=== PATIENT | male | born 1980 | race African-American/Black ===

== ENCOUNTER 2019-03-17 20:50 | Inpatient (IN) | payer SELFPAY ==
[~2019-03-17] VITALS: Ht 177.8 cm; Wt 125.3 kg
--- NOTE | 2019-03-17 21:11 | PHYS DOC ---
Adult General Chief Complaint Chief Complaint: SHORTNESS OF BREATH HPI HPI Patient is a 38 year old male presented with shortness of breath and chest tightness feels like a sledgehammer on his chest coughing yellow mucus had a fever today thinks it's his asthma and been going on 2 weeks it's worse now he can barely walk across the room HX OF HTN BUT NOT ON MEDS NO DOCTOR DENIES ETOH, DRUGS SMOKING Review of Systems Review of Systems Constitutional: Denies fever or chills [] Eyes: Denies change in visual acuity, redness, or eye pain [] Musculoskeletal: Denies back pain or joint pain [] Integument: Denies rash or skin lesions [] Neurologic: Denies headache, focal weakness or sensory changes [] Endocrine: Denies polyuria or polydipsia [] All other systems were reviewed and found to be within normal limits, except as documented in this note. POS ORTHOPNEA "I FEEL MY LUNGS FILL UP WHEN I LIE DOWN" Allergies Allergies Allergies Uncoded Allergies Type Severity Reaction Last Updated Verified SEASONAL ALLERGIES Allergy Unknown 03/17/19 Physical Exam Physical Exam Constitutional: Well developed, well nourished, no acute distress, non-toxic appearance. [] HENT: Normocephalic, atraumatic, bilateral external ears normal, oropharynx moist, no oral exudates, nose normal. [] Eyes: PERRLA, EOMI, conjunctiva normal, no discharge. [] Neck: Normal range of motion, no tenderness, supple, no stridor. [] Cardiovascular:Heart rate regular rhythm, no murmur [] Lungs & Thorax: CRACKLES B/L AND LEFT LUNG BASE DECREASED Abdomen: Bowel sounds normal, soft, no tenderness, no masses, no pulsatile masses. [] Skin: Warm, no erythema, no rash. [] MILD DIAPHORESIS Back: No tenderness, no CVA tenderness. [] Extremities: No tenderness, no cyanosis, no clubbing, ROM intact,ONE PLUS Neurologic: Alert and oriented X 3, normal motor function, normal sensory function, no focal deficits noted. [] Psychologic: Affect normal, judgement normal, mood normal. [] Current Patient Data Vital Signs Vital Signs Date Time Temp Pulse Resp B/P (MAP) Pulse Ox O2 Delivery O2 Flow Rate FiO2 03/17/19 20:50 98.4 100 20 187/122 (143) 86 Room Air 98.4 Lab Values Laboratory Tests Test 03/17/19 21:20 White Blood Count 17.1 x10^3/uL (4.0-11.0) H Red Blood Count 4.34 x10^6/uL (4.30-5.70) Hemoglobin 12.9 g/dL (13.0-17.5) L Hematocrit 38.3 % (39.0-53.0) L Mean Corpuscular Volume 88 fL (79-100) Mean Corpuscular Hemoglobin 30 pg (25-35) Mean Corpuscular Hemoglobin Concent 34 g/dL (31-37) Red Cell Distribution Width 14.4 % (11.5-14.5) Platelet Count 200 x10^3/uL (140-400) Neutrophils (%) (Auto) 78 % (31-73) H Lymphocytes (%) (Auto) 14 % (24-48) L Monocytes (%) (Auto) 7 % (0-9) Eosinophils (%) (Auto) 1 % (0-3) Basophils (%) (Auto) 1 % (0-3) Neutrophils # (Auto) 13.3 x10^3/uL (1.8-7.7) H Lymphocytes # (Auto) 2.4 x10^3/uL (1.0-4.8) Monocytes # (Auto) 1.2 x10^3/uL (0.0-1.1) H Eosinophils # (Auto) 0.2 x10^3/uL (0.0-0.7) Basophils # (Auto) 0.1 x10^3/uL (0.0-0.2) Segmented Neutrophils % 77 % (35-66) H Lymphocytes % 16 % (24-48) L Atypical Lymphocytes % (Manual) 1 % (0-0) H Monocytes % 5 % (0-10) Eosinophils % 1 % (0-5) Platelet Estimate Adequate (ADEQUATE) Sodium Level 145 mmol/L (136-145) Potassium Level 3.8 mmol/L (3.5-5.1) Chloride Level 109 mmol/L (98-107) H Carbon Dioxide Level 25 mmol/L (21-32) Anion Gap 11 (6-14) Blood Urea Nitrogen 13 mg/dL (8-26) Creatinine 1.3 mg/dL (0.7-1.3) Estimated GFR (Cockcroft-Gault) 61.5 BUN/Creatinine Ratio 10 (6-20) Glucose Level 128 mg/dL (70-99) H Calcium Level 9.0 mg/dL (8.5-10.1) Total Bilirubin 0.9 mg/dL (0.2-1.0) Aspartate Amino Transferase (AST) 33 U/L (15-37) Alanine Aminotransferase (ALT) 38 U/L (16-63) Alkaline Phosphatase 79 U/L (46-116) Troponin I Quantitative 0.445 ng/mL (0.000-0.055) PN-Imq-P-Type Natriuretic Peptide 4686 pg/mL (0-124) H Total Protein 6.9 g/dL (6.4-8.2) Albumin 3.2 g/dL (3.4-5.0) L Albumin/Globulin Ratio 0.9 (1.0-1.7) L Laboratory Tests 03/17/19 21:20 Laboratory Tests 03/17/19 21:20 EKG EKG []Normal sinus rhythm rate 83 no acute ischemic changes noted interpreted by me time of encounter. Radiology/Procedures Radiology/Procedures [] Impressions: CHF x-ray significant cardiomegaly Course & Med Decision Making Course & Med Decision Making Pertinent Labs and Imaging studies reviewed. (See chart for details) []38-year-old male coming with shortness of breath for 2 weeks no past medical history except for hypertension which is untreated denies social habits ER workup reveals congestive heart failure pressure elevated usual treatment initiated Lasix Nitropaste aspirin due to the leukocytosis I did also order blood cultures lactic acid and some antibiotics but I think CHF is much more likely. Admitted to Dr. centeno Noted the cardiomegaly needs an echocardiogram at this point time blood pressure is quite elevated not clinically TAMPONADE at this moment Dragon Disclaimer Dragon Disclaimer This electronic medical record was generated, in whole or in part, using a voice recognition dictation system. Departure Departure Impression: Primary Impression: Acute exacerbation of congestive heart failure Disposition: ADMITTED INPATIENT Admitting Physician: IZABEL Condition: STABLE LAURA MADDEN MD Mar 17, 2019 21:11
[2019-03-17 21:30] LABS: BASO # 0.1 x10^3/uL (0.0-0.2); BASO % 1 % (0-3); EOS # 0.2 x10^3/uL (0.0-0.7); EOS % 1 % (0-3); HEMATOCRIT 38.3 % (39.0-53.0); HEMOGLOBIN 12.9 g/dL (13.0-17.5); LYMPH # 2.4 x10^3/uL (1.0-4.8); LYMPH % 14 % (24-48); MEAN CORPUSCULAR HEMOGLOBIN 30 pg (25-35); MEAN CORPUSCULAR HGB CONC 34 g/dL (31-37); MEAN CORPUSCULAR VOLUME 88 fL (79-100); MONO # 1.2 x10^3/uL (0.0-1.1); MONO % 7 % (0-9); NEUT # 13.3 x10^3/uL (1.8-7.7); NEUT % 78 % (31-73); PLATELET COUNT 200 x10^3/uL (140-400); RED BLOOD COUNT 4.34 x10^6/uL (4.30-5.70); RED CELL DISTRIBUTION WIDTH 14.4 % (11.5-14.5); WHITE BLOOD COUNT 17.1 x10^3/uL (4.0-11.0)
[2019-03-17 21:38] LABS: CREATININE 1.3 mg/dL (0.7-1.3); GFR 61.5; POTASSIUM 3.8 mmol/L (3.5-5.1)
[2019-03-17 21:44] LABS: ALBUMIN 3.2 g/dL (3.4-5.0); ALBUMIN/GLOBULIN RATIO 0.9 (1.0-1.7); TOTAL BILIRUBIN 0.9 mg/dL (0.2-1.0); TOTAL PROTEIN 6.9 g/dL (6.4-8.2)
[2019-03-17 21:46] LABS: % ATYL 1 % (0-0); % EOS 1 % (0-5); % LYMPHS 16 % (24-48); % MONOS 5 % (0-10); % SEGS 77 % (35-66); PLT ESTIMATE ADEQUATE (ADEQUATE)
--- NOTE | 2019-03-17 21:46 | RAD ---
Exam: Chest one view INDICATION: Chest pain TECHNIQUE: Frontal view of the chest Comparisons: None FINDINGS: Heart is enlarged. Pulmonary vessels are within normal limits. Hazy opacities in the lungs bilaterally. Small bilateral pleural effusions. IMPRESSION: Significant cardiomegaly with findings likely related to pulmonary edema and small bilateral pleural effusions. Pericardial effusion is possible. Electronically signed by: Mo Vail MD (03/17/2019 9:43 PM) [facility]
[2019-03-17] MEDS ORDERED: FUROSEMIDE 20 MG/2 ML VIAL. IVP ONE (22:00)
[2019-03-17] MEDS ORDERED: NITROGLYCERIN SUBLINGUAL 0.4 MG BOTTLE OF 25. SL PRN (22:00)
[2019-03-17] MEDS ORDERED: DOXYCYCLINE HYCLATE 100 MG TABLET PO ONE (22:00)
[2019-03-17] MEDS ORDERED: NITROGLYCERIN OINT 1 GM PACKET. TP ONE (22:00)
[2019-03-17] MEDS ORDERED: cefTRIAXone IV Push 1 GM VIAL. IVP ONE (22:00)
[2019-03-17] MEDS ORDERED: ASPIRIN CHEWABLE 81 MG TABLET. PO ONE (22:00)
[2019-03-17] MEDS ORDERED: POTASSIUM CHLORIDE 20 MEQ TABLET.ER. PO ONE (22:00)
[2019-03-17 23:36] VITALS: BP 191/138
[2019-03-17 23:52] VITALS: BP 200/128
[2019-03-17] MEDS ORDERED: ALBU2.5V5 NEB (23:55)
[2019-03-18] VITALS (8 sets, daily range): BP systolic 140–201; BP diastolic 80–134
[2019-03-18] MEDS ORDERED: amLODIPine BESYLATE 5 MG TABLET PO ONE
[2019-03-18] MEDS: hydrALAZINE 20 MG/ML VIAL. IVP PRN ×3 (00:06→09:40)
[2019-03-18] MEDS: ACETAMINOPHEN 325 MG TABLET. PO PRN ×3 (01:27→18:09)
[2019-03-18] MEDS ORDERED: METOPROLOL TART IMMED RELEASE 25 MG TABLET. PO ONE (01:30)
[2019-03-18] MEDS ORDERED: ALBUTEROL SULFATE 2.5 MG/3 ML NEBU. NEB PRN (01:30)
--- NOTE | 2019-03-18 03:27 | NUR ---
Patient arrived by wheelchair at 2315. Patient complained of chest pain 01/21 and was hypertensive. Contacted Dr. Nur and new orders and to restart home medications.
[2019-03-18 04:38] LABS: CHOLESTEROL/HDL RATIO 4.5
[2019-03-18 05:49] LABS: CALCIUM 8.8 mg/dL (8.5-10.1); CREATININE 1.3 mg/dL (0.7-1.3); GFR 74.4; POTASSIUM 3.6 mmol/L (3.5-5.1)
[2019-03-18 06:01] LABS: BASO % 0 % (0-3); EOS % 0 % (0-3); HEMATOCRIT 37.9 % (39.0-53.0); HEMOGLOBIN 12.8 g/dL (13.0-17.5); LYMPH # 1.7 x10^3/uL (1.0-4.8); LYMPH % 10 % (24-48); MEAN CORPUSCULAR HEMOGLOBIN 30 pg (25-35); MEAN CORPUSCULAR HGB CONC 34 g/dL (31-37); MEAN CORPUSCULAR VOLUME 89 fL (79-100); MONO % 6 % (0-9); NEUT # 14.9 x10^3/uL (1.8-7.7); NEUT % 84 % (31-73); PLATELET COUNT 199 x10^3/uL (140-400); RED BLOOD COUNT 4.27 x10^6/uL (4.30-5.70); RED CELL DISTRIBUTION WIDTH 14.5 % (11.5-14.5); WHITE BLOOD COUNT 17.7 x10^3/uL (4.0-11.0)
[2019-03-18] MEDS ORDERED: amLODIPine BESYLATE 10 MG TABLET PO ONE (06:15)
[2019-03-18] MEDS ORDERED: FUROSEMIDE 40 MG/4 ML VIAL. IVP ONE (06:15)
[2019-03-18] MEDS ORDERED: POTASSIUM CHLORIDE 20 MEQ TABLET.ER. PO ONE (06:45)
[2019-03-18] MEDS ORDERED: AMIODARONE 450 MG in IV DEXTROSE 5% 250 ML IV PRN (07:00)
[2019-03-18] MEDS ORDERED: AMIODARONE 150 MG in IV DEXTROSE 5% 100ML 100 ML IV ONE (07:00)
[2019-03-18 08:07] LABS: BARBITURATES NEG (NEG); BENZODIAZEPINES NEG (NEG); CANNABINOIDS POS (NEG); COCAINE NEG (NEG); METHADONE NEG (NEG); OPIATES NEG (NEG); PHENCYCLIDINE NEG (NEG)
[2019-03-18 08:11] LABS: AMPHETAMINE/METHAMPHETAMINE NEG (NEG)
--- NOTE | 2019-03-18 08:47 | PDOC1 ---
History and Physical Date of Admission Date of Admission DATE: 03/18/19 TIME: 08:38 Source Source: Chart review, Patient History of Present Illness History of Present Illness Mr. Mendoza, is a 38 year old male presented with shortness of breath and chest tightness feels like a sledgehammer on his chest coughing yellow mucus had a fever today thinks it's his asthma and been going on 2 weeks it's worse now he can barely walk across the room. he has been short of breath, cannot walk up stairs well has burning chest pain, starts in lower abdomen and sometimes progresses to chest Past Medical History Cardiovascular: HTN Pulmonary: Asthma GI: No pertinent hx Heme/Onc: No pertinent hx Hepatobiliary: No pertinent hx Psych: No pertinent hx Rheumatologic: No pertinent hx Infectious disease: No pertinent hx ENT: No pertinent hx Renal/: No pertinent hx Endocrine: No pertinent hx Dermatology: No pertinent hx Family History Family History: Coronary Artery Disease, Heart Disease Family History: Grandparents Social History Smoke: No ALCOHOL: rare Drugs: None Current Problem List Problem List Problems Medical Problems: (1) Acute exacerbation of congestive heart failure Status: Acute Current Medications Current Medications Current Medications Ceftriaxone Sodium (Rocephin) 1 gm 1X ONCE IVP Last administered on 03/17/19at 22:11; Start 03/17/19 at 22:00; Stop 03/17/19 at 22:01; Status DC Doxycycline Hyclate (Vibra-Tab) 100 mg 1X ONCE PO Last administered on 03/17/19at 22:10; Start 03/17/19 at 22:00; Stop 03/17/19 at 22:01; Status DC Nitroglycerin (Nitro-Bid Oint) 1 inch 1X ONCE TP Last administered on at 22:11; Start 03/17/19 at 22:00; Stop 03/17/19 at 22:01; Status DC Aspirin (Children'S Aspirin) 324 mg 1X ONCE PO Last administered on 03/17/19at 22:11; Start 03/17/19 at 22:00; Stop 03/17/19 at 22:01; Status DC Furosemide (Lasix) 20 mg 1X ONCE IVP Last administered on 03/17/19at 22:10; Start 03/17/19 at 22:00; Stop 03/17/19 at 22:01; Status DC Nitroglycerin (Nitrostat) 0.4 mg PRN Q5MIN PRN SL CHEST PAIN Last administered on 03/18/19at 01:27; Start 03/17/19 at 22:00; Stop 03/18/19 at 21:59 Potassium Chloride (Klor-Con) 20 meq 1X ONCE PO Last administered on 03/17/19at 22:10; Start 03/17/19 at 22:00; Stop 03/17/19 at 22:01; Status DC Amlodipine Besylate (Norvasc) 5 mg 1X ONCE PO Last administered on 03/18/19at 00:07; Start 03/18/19 at 00:00; Stop 03/18/19 at 00:01; Status DC Amlodipine Besylate (Norvasc) 5 mg DAILY PO ; Start 03/18/19 at 09:00; Stop 03/18/19 at 06:13; Status DC Hydralazine HCl (Apresoline Inj) 10 mg PRN Q4HRS PRN IVP ELEVATED BP, SEE COMMENTS Last administered on 03/18/19at 03:39; Start 03/18/19 at 00:00 Metoprolol Tartrate (Lopressor) 25 mg 1X ONCE PO Last administered on 03/18/19at 01:27; Start 03/18/19 at 01:30; Stop 03/18/19 at 01:31; Status DC Metoprolol Tartrate (Lopressor) 25 mg BID PO ; Start 03/18/19 at 09:00 Acetaminophen (Tylenol) 650 mg PRN Q6HRS PRN PO PAIN Last administered on 03/18/19at 01:27; Start 03/18/19 at 01:30 Albuterol Sulfate (Ventolin Neb Soln) 2.5 mg PRN Q4HRS PRN NEB SHORTNESS OF BREATH Last administered on 03/18/19at 01:34; Start 03/18/19 at 01:30 Furosemide (Lasix) 40 mg 1X ONCE IVP Last administered on 03/18/19at 07:16; Start 03/18/19 at 06:15; Stop 03/18/19 at 06:16; Status DC Amlodipine Besylate (Norvasc) 10 mg ONCE ONCE PO ; Start 03/18/19 at 06:15; Stop 03/18/19 at 06:38; Status DC Potassium Chloride (Klor-Con) 20 meq 1X ONCE PO Last administered on 03/18/19at 07:20; Start 03/18/19 at 06:45; Stop 03/18/19 at 06:46; Status DC Amiodarone HCl 150 mg/Dextrose 103 ml @ 618 mls/hr 1X ONCE IV Last administered on 03/18/19at 07:20; Start 03/18/19 at 07:00; Stop 03/18/19 at 07:09; Status DC Amiodarone HCl 450 mg/Dextrose 259 ml @ 17 mls/hr CONT PRN IV SEE I/O RECORD Last administered on 03/18/19at 07:30; Start 03/18/19 at 07:00 Active Scripts Active Reported Albuterol Sulfate Neb Soln (Albuterol Sulfate) 2.5 Mg/3 Ml Vial.neb 1 Vial NEB PRN Q4HRS Allergies Allergies: Uncoded Allergies: SEASONAL ALLERGIES (Allergy, Unknown, 03/17/19) ROS General: No: Chills, Night Sweats, Fatigue, Malaise, Appetite, Other PSYCHOLOGICAL ROS: No: Anxiety, Behavioral Disorder, Concentration difficultie, Decreased libido, Depression, Disorientation, Hallucinations, Hostility, Irritablity, Memory difficulties, Mood Swings, Obsessive thoughts, Physical abuse, Sexual abuse, Sleep disturbances, Suicidal ideation, Other Eyes: No Blurry vision, No Decreased vision, No Double vision, No Dry eyes, No Excessive tearing, No Eye Pain, No Itchy Eyes, No Loss of vision, No Photophobia, No Scotomata, No Uses contacts, No Uses glasses, No Other HEENT: No: Heacaches, Visual Changes, Hearing change, Nasal congestion, Nasal discharge, Oral lesions, Sinus pain, Sore Throat, Epistaxis, Sneezing, Snoring, Tinnitus, Vertigo, Vocal changes, Other Respiratory: No: Cough, Hemoptysis, Orthopnea, Pleuritic Pain, Shortness of breath, SOB with excertion, Sputum Changes, Stridor, Tachypnea, Wheezing, Other Cardiovascular: yes Edema; No Chest Pain, No Palpitations, No Orthopnea, No Paroxysmal Noc. Dyspnea, No Lt Headedness, No Other Gastrointestinal: No Nausea, No Vomiting, No Abdominal Pain, No Diarrhea, No Constipation, No Melena, No Hematochezia, No Other Genitourinary: No Dysuria, No Frequency, No Incontinence, No Hematuria, No Retention, No Discharge, No Urgency, No Pain, No Flank Pain, No Other, No , No , No , No , No , No , No Musculoskeletal: Yes Joint Stiffness; No Gait Disturbance, No Joint Pain, No Joint Swelling, No Muscle Pain, No Muscular Weakness, No Pain In:, No Swelling In:, No Other Neurological: No Behavorial Changes, No Bowel/Bladder ControlChng, No Confusion, No Dizziness, No Gait Disturbance, No Headaches, No Impaired Coord/balance, No Memory Loss, No Numbness/Tingling, No Seizures, No Speech Problems, No Tremors, No Visual Changes, No Weakness, No Other Skin: No Dry Skin, No Eczema, No Hair Changes, No Lumps, No Mole Changes, No Mottling, No Nail Changes, No Pruritus, No Rash, No Skin Lesion Changes, No Other, No Acne Physical Exam General: Alert, mild distress HEENT: Atraumatic, PERRLA Lungs: Normal air movement Abdomen: Normal bowel sounds, Soft Extremities: No clubbing, Normal pulses, Other (tr edema) Skin: No rashes, No significant lesion Neuro: Normal speech, Normal tone, Sensation intact Psych/Mental Status: Mental status NL, Mood NL Vitals Vitals Vital Signs Date Time Temp Pulse Resp B/P (MAP) Pulse Ox O2 Delivery O2 Flow Rate FiO2 03/18/19 07:37 Nasal Cannula 2.0 03/18/19 07:20 87 163/88 03/18/19 07:00 97 03/18/19 04:00 97.7 97.7 03/17/19 23:36 24 Labs Labs Laboratory Tests Test 03/17/19 21:20 03/18/19 00:55 03/18/19 04:10 03/18/19 07:45 White Blood Count 17.1 x10^3/uL (4.0-11.0) 17.7 x10^3/uL (4.0-11.0) Red Blood Count 4.34 x10^6/uL (4.30-5.70) 4.27 x10^6/uL (4.30-5.70) Hemoglobin 12.9 g/dL (13.0-17.5) 12.8 g/dL (13.0-17.5) Hematocrit 38.3 % (39.0-53.0) 37.9 % (39.0-53.0) Mean Corpuscular Volume 88 fL (79-100) 89 fL (79-100) Mean Corpuscular Hemoglobin 30 pg (25-35) 30 pg (25-35) Mean Corpuscular Hemoglobin Concent 34 g/dL (31-37) 34 g/dL (31-37) Red Cell Distribution Width 14.4 % (11.5-14.5) 14.5 % (11.5-14.5) Platelet Count 200 x10^3/uL (140-400) 199 x10^3/uL (140-400) Neutrophils (%) (Auto) 78 % (31-73) 84 % (31-73) Lymphocytes (%) (Auto) 14 % (24-48) 10 % (24-48) Monocytes (%) (Auto) 7 % (0-9) 6 % (0-9) Eosinophils (%) (Auto) 1 % (0-3) 0 % (0-3) Basophils (%) (Auto) 1 % (0-3) 0 % (0-3) Neutrophils # (Auto) 13.3 x10^3/uL (1.8-7.7) 14.9 x10^3/uL (1.8-7.7) Lymphocytes # (Auto) 2.4 x10^3/uL (1.0-4.8) 1.7 x10^3/uL (1.0-4.8) Monocytes # (Auto) 1.2 x10^3/uL (0.0-1.1) 1.0 x10^3/uL (0.0-1.1) Eosinophils # (Auto) 0.2 x10^3/uL (0.0-0.7) 0.0 x10^3/uL (0.0-0.7) Basophils # (Auto) 0.1 x10^3/uL (0.0-0.2) 0.0 x10^3/uL (0.0-0.2) Segmented Neutrophils % 77 % (35-66) Lymphocytes % 16 % (24-48) Atypical Lymphocytes % (Manual) 1 % (0-0) Monocytes % 5 % (0-10) Eosinophils % 1 % (0-5) Platelet Estimate Adequate (ADEQUATE) Sodium Level 145 mmol/L (136-145) 142 mmol/L (136-145) Potassium Level 3.8 mmol/L (3.5-5.1) 3.6 mmol/L (3.5-5.1) Chloride Level 109 mmol/L (98-107) 108 mmol/L (98-107) Carbon Dioxide Level 25 mmol/L (21-32) 23 mmol/L (21-32) Anion Gap 11 (6-14) 11 (6-14) Blood Urea Nitrogen 13 mg/dL (8-26) 14 mg/dL (8-26) Creatinine 1.3 mg/dL (0.7-1.3) 1.3 mg/dL (0.7-1.3) Estimated GFR (Cockcroft-Gault) 61.5 74.4 BUN/Creatinine Ratio 10 (6-20) Glucose Level 128 mg/dL (70-99) 150 mg/dL (70-99) Lactic Acid Level 1.0 mmol/L (0.4-2.0) Calcium Level 9.0 mg/dL (8.5-10.1) 8.8 mg/dL (8.5-10.1) Total Bilirubin 0.9 mg/dL (0.2-1.0) Aspartate Amino Transf (AST/SGOT) 33 U/L (15-37) Alanine Aminotransferase (ALT/SGPT) 38 U/L (16-63) Alkaline Phosphatase 79 U/L (46-116) Troponin I Quantitative 0.445 ng/mL (0.000-0.055) 0.489 ng/mL (0.000-0.055) 0.400 ng/mL (0.000-0.055) ES-Zsw-X-Type Natriuretic Peptide 4686 pg/mL (0-124) Total Protein 6.9 g/dL (6.4-8.2) Albumin 3.2 g/dL (3.4-5.0) Albumin/Globulin Ratio 0.9 (1.0-1.7) Magnesium Level 2.0 mg/dL (1.8-2.4) Triglycerides Level 62 mg/dL (0-150) Cholesterol Level 157 mg/dL (0-200) LDL Cholesterol, Calculated 110 mg/dL (0-100) VLDL Cholesterol, Calculated 12 mg/dL (0-40) Non-HDL Cholesterol Calculated 122 mg/dL (0-129) HDL Cholesterol 35 mg/dL (40-60) Cholesterol/HDL Ratio 4.5 Urine Opiates Screen Neg (NEG) Urine Methadone Screen Neg (NEG) Urine Barbiturates Neg (NEG) Urine Phencyclidine Screen Neg (NEG) Urine Amphetamine/Methamphetamine Neg (NEG) Urine Benzodiazepines Screen Neg (NEG) Urine Cocaine Screen Neg (NEG) Urine Cannabinoids Screen Pos (NEG) Urine Ethyl Alcohol Neg (NEG) Laboratory Tests Test 03/17/19 21:20 03/18/19 00:55 03/18/19 04:10 03/18/19 07:45 White Blood Count 17.1 x10^3/uL (4.0-11.0) 17.7 x10^3/uL (4.0-11.0) Red Blood Count 4.34 x10^6/uL (4.30-5.70) 4.27 x10^6/uL (4.30-5.70) Hemoglobin 12.9 g/dL (13.0-17.5) 12.8 g/dL (13.0-17.5) Hematocrit 38.3 % (39.0-53.0) 37.9 % (39.0-53.0) Mean Corpuscular Volume 88 fL (79-100) 89 fL (79-100) Mean Corpuscular Hemoglobin 30 pg (25-35) 30 pg (25-35) Mean Corpuscular Hemoglobin Concent 34 g/dL (31-37) 34 g/dL (31-37) Red Cell Distribution Width 14.4 % (11.5-14.5) 14.5 % (11.5-14.5) Platelet Count 200 x10^3/uL (140-400) 199 x10^3/uL (140-400) Neutrophils (%) (Auto) 78 % (31-73) 84 % (31-73) Lymphocytes (%) (Auto) 14 % (24-48) 10 % (24-48) Monocytes (%) (Auto) 7 % (0-9) 6 % (0-9) Eosinophils (%) (Auto) 1 % (0-3) 0 % (0-3) Basophils (%) (Auto) 1 % (0-3) 0 % (0-3) Neutrophils # (Auto) 13.3 x10^3/uL (1.8-7.7) 14.9 x10^3/uL (1.8-7.7) Lymphocytes # (Auto) 2.4 x10^3/uL (1.0-4.8) 1.7 x10^3/uL (1.0-4.8) Monocytes # (Auto) 1.2 x10^3/uL (0.0-1.1) 1.0 x10^3/uL (0.0-1.1) Eosinophils # (Auto) 0.2 x10^3/uL (0.0-0.7) 0.0 x10^3/uL (0.0-0.7) Basophils # (Auto) 0.1 x10^3/uL (0.0-0.2) 0.0 x10^3/uL (0.0-0.2) Segmented Neutrophils % 77 % (35-66) Lymphocytes % 16 % (24-48) Atypical Lymphocytes % (Manual) 1 % (0-0) Monocytes % 5 % (0-10) Eosinophils % 1 % (0-5) Platelet Estimate Adequate (ADEQUATE) Sodium Level 145 mmol/L (136-145) 142 mmol/L (136-145) Potassium Level 3.8 mmol/L (3.5-5.1) 3.6 mmol/L (3.5-5.1) Chloride Level 109 mmol/L (98-107) 108 mmol/L (98-107) Carbon Dioxide Level 25 mmol/L (21-32) 23 mmol/L (21-32) Anion Gap 11 (6-14) 11 (6-14) Blood Urea Nitrogen 13 mg/dL (8-26) 14 mg/dL (8-26) Creatinine 1.3 mg/dL (0.7-1.3) 1.3 mg/dL (0.7-1.3) Estimated GFR (Cockcroft-Gault) 61.5 74.4 BUN/Creatinine Ratio 10 (6-20) Glucose Level 128 mg/dL (70-99) 150 mg/dL (70-99) Lactic Acid Level 1.0 mmol/L (0.4-2.0) Calcium Level 9.0 mg/dL (8.5-10.1) 8.8 mg/dL (8.5-10.1) Total Bilirubin 0.9 mg/dL (0.2-1.0) Aspartate Amino Transf (AST/SGOT) 33 U/L (15-37) Alanine Aminotransferase (ALT/SGPT) 38 U/L (16-63) Alkaline Phosphatase 79 U/L (46-116) Troponin I Quantitative 0.445 ng/mL (0.000-0.055) 0.489 ng/mL (0.000-0.055) 0.400 ng/mL (0.000-0.055) QD-Lwp-I-Type Natriuretic Peptide 4686 pg/mL (0-124) Total Protein 6.9 g/dL (6.4-8.2) Albumin 3.2 g/dL (3.4-5.0) Albumin/Globulin Ratio 0.9 (1.0-1.7) Magnesium Level 2.0 mg/dL (1.8-2.4) Triglycerides Level 62 mg/dL (0-150) Cholesterol Level 157 mg/dL (0-200) LDL Cholesterol, Calculated 110 mg/dL (0-100) VLDL Cholesterol, Calculated 12 mg/dL (0-40) Non-HDL Cholesterol Calculated 122 mg/dL (0-129) HDL Cholesterol 35 mg/dL (40-60) Cholesterol/HDL Ratio 4.5 Urine Opiates Screen Neg (NEG) Urine Methadone Screen Neg (NEG) Urine Barbiturates Neg (NEG) Urine Phencyclidine Screen Neg (NEG) Urine Amphetamine/Methamphetamine Neg (NEG) Urine Benzodiazepines Screen Neg (NEG) Urine Cocaine Screen Neg (NEG) Urine Cannabinoids Screen Pos (NEG) Urine Ethyl Alcohol Neg (NEG) VTE Prophylaxis Ordered VTE Prophylaxis Devices: Yes VTE Pharmacological Prophylaxi: No Assessment/Plan Assessment/Plan malignant hypertension obesity, BMI 40 acute diastolic CHF, angina admit, nitro, tele, 3 BP agents started, still htn, had a 10 beat run vtach, amio gtt started, FRANCISCO CEDILLO MD Mar 18, 2019 08:47
[2019-03-18] MEDS ORDERED: amLODIPine BESYLATE 5 MG TABLET PO SCH (09:00)
[2019-03-18] MEDS: FAMOTIDINE 20 MG TABLET. PO SCH ×2 (09:39→21:53)
[2019-03-18] MEDS: METOPROLOL TART IMMED RELEASE 25 MG TABLET. PO SCH ×2 (09:40→21:53)
[2019-03-18] MEDS: LISINOPRIL 20 MG TABLET PO SCH (10:34)
[2019-03-18] MEDS ORDERED: ONDANSETRON PF 4 MG/2 ML VIAL. IVP PRN (10:45)
--- NOTE | 2019-03-18 16:13 | PDOC2 ---
CONSULT Date of Consult Date of Consult DATE: 03/18/19 TIME: 16:06 Reason for Consult Reason for Consult: Heart failure Referring Physician Referring Physician: Dr. Nur Identification/Chief Complaint Chief Complaint Shortness of breath Source Source: Chart review, Patient History of Present Illness Reason for Visit: The patient is a 38-year-old male who presented to the emergency room with several days of increasing shortness of breath. Chest x-ray showed cardiomegaly and probable pulmonary edema. EKG showed no acute ischemic changes. Patient was treated with diuretics and is feeling better. On further discussion with the patient he reports a several month history of gradually increasing dyspnea on exertion as well as PND. He hasn't been unable to lie flat for sleeping for at least 3 months. He has a history of hypertension which has not been treated recently. He denies any history of coronary artery disease, congestive heart failure or cardiac arrhythmias. He is feeling better this morning. Past Medical History Cardiovascular: HTN Pulmonary: Asthma GI: No pertinent hx Heme/Onc: No pertinent hx Hepatobiliary: No pertinent hx Psych: No pertinent hx Rheumatologic: No pertinent hx Infectious disease: No pertinent hx ENT: No pertinent hx Renal/: No pertinent hx Endocrine: No pertinent hx Dermatology: No pertinent hx Past Surgical History Past Surgical History: No pertinent history Family History Family History: Coronary Artery Disease, Heart Disease Social History Social History: Grandparents No ALCOHOL: rare Drugs: None Current Problem List Problem List Problems Medical Problems: (1) Acute exacerbation of congestive heart failure Status: Acute Current Medications Current Medications Current Medications Ceftriaxone Sodium (Rocephin) 1 gm 1X ONCE IVP Last administered on 03/17/19at 22:11; Start 03/17/19 at 22:00; Stop 03/17/19 at 22:01; Status DC Doxycycline Hyclate (Vibra-Tab) 100 mg 1X ONCE PO Last administered on 03/17/19at 22:10; Start 03/17/19 at 22:00; Stop 03/17/19 at 22:01; Status DC Nitroglycerin (Nitro-Bid Oint) 1 inch 1X ONCE TP Last administered on 03/17/19at 22:11; Start 03/17/19 at 22:00; Stop 03/17/19 at 22:01; Status DC Aspirin (Children'S Aspirin) 324 mg 1X ONCE PO Last administered on 03/17/19at 22:11; Start 03/17/19 at 22:00; Stop 03/17/19 at 22:01; Status DC Furosemide (Lasix) 20 mg 1X ONCE IVP Last administered on 03/17/19at 22:10; Start 03/17/19 at 22:00; Stop 03/17/19 at 22:01; Status DC Nitroglycerin (Nitrostat) 0.4 mg PRN Q5MIN PRN SL CHEST PAIN Last administered on 03/18/19 01:27; Start 03/17/19 at 22:00; Stop 03/18/19 at 21:59 Potassium Chloride (Klor-Con) 20 meq 1X ONCE PO Last administered on 03/17/19 22:10; Start 03/17/19 at 22:00; Stop 03/17/19 at 22:01; Status DC Amlodipine Besylate (Norvasc) 5 mg 1X ONCE PO Last administered on 03/18/19at 00:07; Start 03/18/19 at 00:00; Stop 03/18/19 at 00:01; Status DC Amlodipine Besylate (Norvasc) 5 mg DAILY PO ; Start 03/18/19 at 09:00; Stop 03/18/19 at 06:13; Status DC Hydralazine HCl (Apresoline Inj) 10 mg PRN Q4HRS PRN IVP ELEVATED BP, SEE COMMENTS Last administered on 03/18/19at 09:40; Start 03/18/19 at 00:00 Metoprolol Tartrate (Lopressor) 25 mg 1X ONCE PO Last administered on 03/18/19 01:27; Start 03/18/19 at 01:30; Stop 03/18/19 at 01:31; Status DC Metoprolol Tartrate (Lopressor) 25 mg BID PO Last administered on 03/18/19 09:40; Start 03/18/19 at 09:00 Acetaminophen (Tylenol) 650 mg PRN Q6HRS PRN PO PAIN Last administered on 03/18/19 09:47; Start 03/18/19 at 01:30 Albuterol Sulfate (Ventolin Neb Soln) 2.5 mg PRN Q4HRS PRN NEB SHORTNESS OF BREATH Last administered on 03/18/19at 01:34; Start 03/18/19 at 01:30 Furosemide (Lasix) 40 mg 1X ONCE IVP Last administered on 03/18/19at 07:16; Start 03/18/19 at 06:15; Stop 03/18/19 at 06:16; Status DC Amlodipine Besylate (Norvasc) 10 mg ONCE ONCE PO ; Start 03/18/19 at 06:15; Stop 03/18/19 at 06:38; Status DC Potassium Chloride (Klor-Con) 20 meq 1X ONCE PO Last administered on 03/18/19at 07:20; Start 03/18/19 at 06:45; Stop 03/18/19 at 06:46; Status DC Amiodarone HCl 150 mg/Dextrose 103 ml @ 618 mls/hr 1X ONCE IV Last administered on 03/18/19at 07:20; Start 03/18/19 at 07:00; Stop 03/18/19 at 07:09; Status DC Amiodarone HCl 450 mg/Dextrose 259 ml @ 17 mls/hr CONT PRN IV SEE I/O RECORD Last administered on 03/18/19at 07:30; Start 03/18/19 at 07:00 Famotidine (Pepcid) 20 mg BID PO Last administered on 03/18/19at 09:39; Start 1 at 09:00 Lisinopril (Prinivil) 20 mg DAILY PO Last administered on 03/18/19at 10:34; Start 03/18/19 at 10:00 Ondansetron HCl (Zofran) 4 mg PRN Q6HRS PRN IVP NAUSEA/VOMITING Last administered on 03/18/19at 10:43; Start 03/18/19 at 10:45 Active Scripts Active Reported Albuterol Sulfate Neb Soln (Albuterol Sulfate) 2.5 Mg/3 Ml Vial.neb 1 Vial NEB PRN Q4HRS Allergies Allergies: Coded Allergies: No Known Medication Allergies (Verified Allergy, Unknown, 03/18/19) Uncoded Allergies: SEASONAL ALLERGIES (Allergy, Unknown, 03/17/19) ROS General: YES: Fatigue Respiratory: YES: Shortness of breath, SOB with excertion Cardiovascular: yes Paroxysmal Noc. Dyspnea Physical Exam General: mild distress Lungs: Other (decreased breath sounds) Heart: Regular rate Abdomen: Normal bowel sounds Vitals VITALS Vital Signs Date Time Temp Pulse Resp B/P (MAP) Pulse Ox O2 Delivery O2 Flow Rate FiO2 03/18/19 15:00 98.4 82 18 142/85 (104) 94 Nasal Cannula 2.0 98.4 Labs Labs Laboratory Tests Test 03/17/19 21:20 03/18/19 00:55 03/18/19 04:10 03/18/19 07:45 White Blood Count 17.1 x10^3/uL (4.0-11.0) 17.7 x10^3/uL (4.0-11.0) Red Blood Count 4.34 x10^6/uL (4.30-5.70) 4.27 x10^6/uL (4.30-5.70) Hemoglobin 12.9 g/dL (13.0-17.5) 12.8 g/dL (13.0-17.5) Hematocrit 38.3 % (39.0-53.0) 37.9 % (39.0-53.0) Mean Corpuscular Volume 88 fL (79-100) 89 fL (79-100) Mean Corpuscular Hemoglobin 30 pg (25-35) 30 pg (25-35) Mean Corpuscular Hemoglobin Concent 34 g/dL (31-37) 34 g/dL (31-37) Red Cell Distribution Width 14.4 % (11.5-14.5) 14.5 % (11.5-14.5) Platelet Count 200 x10^3/uL (140-400) 199 x10^3/uL (140-400) Neutrophils (%) (Auto) 78 % (31-73) 84 % (31-73) Lymphocytes (%) (Auto) 14 % (24-48) 10 % (24-48) Monocytes (%) (Auto) 7 % (0-9) 6 % (0-9) Eosinophils (%) (Auto) 1 % (0-3) 0 % (0-3) Basophils (%) (Auto) 1 % (0-3) 0 % (0-3) Neutrophils # (Auto) 13.3 x10^3/uL (1.8-7.7) 14.9 x10^3/uL (1.8-7.7) Lymphocytes # (Auto) 2.4 x10^3/uL (1.0-4.8) 1.7 x10^3/uL (1.0-4.8) Monocytes # (Auto) 1.2 x10^3/uL (0.0-1.1) 1.0 x10^3/uL (0.0-1.1) Eosinophils # (Auto) 0.2 x10^3/uL (0.0-0.7) 0.0 x10^3/uL (0.0-0.7) Basophils # (Auto) 0.1 x10^3/uL (0.0-0.2) 0.0 x10^3/uL (0.0-0.2) Segmented Neutrophils % 77 % (35-66) Lymphocytes % 16 % (24-48) Atypical Lymphocytes % (Manual) 1 % (0-0) Monocytes % 5 % (0-10) Eosinophils % 1 % (0-5) Platelet Estimate Adequate (ADEQUATE) Sodium Level 145 mmol/L (136-145) 142 mmol/L (136-145) Potassium Level 3.8 mmol/L (3.5-5.1) 3.6 mmol/L (3.5-5.1) Chloride Level 109 mmol/L (98-107) 108 mmol/L (98-107) Carbon Dioxide Level 25 mmol/L (21-32) 23 mmol/L (21-32) Anion Gap 11 (6-14) 11 (6-14) Blood Urea Nitrogen 13 mg/dL (8-26) 14 mg/dL (8-26) Creatinine 1.3 mg/dL (0.7-1.3) 1.3 mg/dL (0.7-1.3) Estimated GFR (Cockcroft-Gault) 61.5 74.4 BUN/Creatinine Ratio 10 (6-20) Glucose Level 128 mg/dL (70-99) 150 mg/dL (70-99) Lactic Acid Level 1.0 mmol/L (0.4-2.0) Calcium Level 9.0 mg/dL (8.5-10.1) 8.8 mg/dL (8.5-10.1) Total Bilirubin 0.9 mg/dL (0.2-1.0) Aspartate Amino Transf (AST/SGOT) 33 U/L (15-37) Alanine Aminotransferase (ALT/SGPT) 38 U/L (16-63) Alkaline Phosphatase 79 U/L (46-116) Troponin I Quantitative 0.445 ng/mL (0.000-0.055) 0.489 ng/mL (0.000-0.055) 0.400 ng/mL (0.000-0.055) TE-Raz-Y-Type Natriuretic Peptide 4686 pg/mL (0-124) Total Protein 6.9 g/dL (6.4-8.2) Albumin 3.2 g/dL (3.4-5.0) Albumin/Globulin Ratio 0.9 (1.0-1.7) Magnesium Level 2.0 mg/dL (1.8-2.4) Triglycerides Level 62 mg/dL (0-150) Cholesterol Level 157 mg/dL (0-200) LDL Cholesterol, Calculated 110 mg/dL (0-100) VLDL Cholesterol, Calculated 12 mg/dL (0-40) Non-HDL Cholesterol Calculated 122 mg/dL (0-129) HDL Cholesterol 35 mg/dL (40-60) Cholesterol/HDL Ratio 4.5 Urine Opiates Screen Neg (NEG) Urine Methadone Screen Neg (NEG) Urine Barbiturates Neg (NEG) Urine Phencyclidine Screen Neg (NEG) Urine Amphetamine/Methamphetamine Neg (NEG) Urine Benzodiazepines Screen Neg (NEG) Urine Cocaine Screen Neg (NEG) Urine Cannabinoids Screen Pos (NEG) Urine Ethyl Alcohol Neg (NEG) Laboratory Tests Test 03/17/19 21:20 03/18/19 00:55 03/18/19 04:10 03/18/19 07:45 White Blood Count 17.1 x10^3/uL (4.0-11.0) 17.7 x10^3/uL (4.0-11.0) Red Blood Count 4.34 x10^6/uL (4.30-5.70) 4.27 x10^6/uL (4.30-5.70) Hemoglobin 12.9 g/dL (13.0-17.5) 12.8 g/dL (13.0-17.5) Hematocrit 38.3 % (39.0-53.0) 37.9 % (39.0-53.0) Mean Corpuscular Volume 88 fL (79-100) 89 fL (79-100) Mean Corpuscular Hemoglobin 30 pg (25-35) 30 pg (25-35) Mean Corpuscular Hemoglobin Concent 34 g/dL (31-37) 34 g/dL (31-37) Red Cell Distribution Width 14.4 % (11.5-14.5) 14.5 % (11.5-14.5) Platelet Count 200 x10^3/uL (140-400) 199 x10^3/uL (140-400) Neutrophils (%) (Auto) 78 % (31-73) 84 % (31-73) Lymphocytes (%) (Auto) 14 % (24-48) 10 % (24-48) Monocytes (%) (Auto) 7 % (0-9) 6 % (0-9) Eosinophils (%) (Auto) 1 % (0-3) 0 % (0-3) Basophils (%) (Auto) 1 % (0-3) 0 % (0-3) Neutrophils # (Auto) 13.3 x10^3/uL (1.8-7.7) 14.9 x10^3/uL (1.8-7.7) Lymphocytes # (Auto) 2.4 x10^3/uL (1.0-4.8) 1.7 x10^3/uL (1.0-4.8) Monocytes # (Auto) 1.2 x10^3/uL (0.0-1.1) 1.0 x10^3/uL (0.0-1.1) Eosinophils # (Auto) 0.2 x10^3/uL (0.0-0.7) 0.0 x10^3/uL (0.0-0.7) Basophils # (Auto) 0.1 x10^3/uL (0.0-0.2) 0.0 x10^3/uL (0.0-0.2) Segmented Neutrophils % 77 % (35-66) Lymphocytes % 16 % (24-48) Atypical Lymphocytes % (Manual) 1 % (0-0) Monocytes % 5 % (0-10) Eosinophils % 1 % (0-5) Platelet Estimate Adequate (ADEQUATE) Sodium Level 145 mmol/L (136-145) 142 mmol/L (136-145) Potassium Level 3.8 mmol/L (3.5-5.1) 3.6 mmol/L (3.5-5.1) Chloride Level 109 mmol/L (98-107) 108 mmol/L (98-107) Carbon Dioxide Level 25 mmol/L (21-32) 23 mmol/L (21-32) Anion Gap 11 (6-14) 11 (6-14) Blood Urea Nitrogen 13 mg/dL (8-26) 14 mg/dL (8-26) Creatinine 1.3 mg/dL (0.7-1.3) 1.3 mg/dL (0.7-1.3) Estimated GFR (Cockcroft-Gault) 61.5 74.4 BUN/Creatinine Ratio 10 (6-20) Glucose Level 128 mg/dL (70-99) 150 mg/dL (70-99) Lactic Acid Level 1.0 mmol/L (0.4-2.0) Calcium Level 9.0 mg/dL (8.5-10.1) 8.8 mg/dL (8.5-10.1) Total Bilirubin 0.9 mg/dL (0.2-1.0) Aspartate Amino Transf (AST/SGOT) 33 U/L (15-37) Alanine Aminotransferase (ALT/SGPT) 38 U/L (16-63) Alkaline Phosphatase 79 U/L (46-116) Troponin I Quantitative 0.445 ng/mL (0.000-0.055) 0.489 ng/mL (0.000-0.055) 0.400 ng/mL (0.000-0.055) EB-Ipc-[id number]-Type Natriuretic Peptide 4686 pg/mL (0-124) Total Protein 6.9 g/dL (6.4-8.2) Albumin 3.2 g/dL (3.4-5.0) Albumin/Globulin Ratio 0.9 (1.0-1.7) Magnesium Level 2.0 mg/dL (1.8-2.4) Triglycerides Level 62 mg/dL (0-150) Cholesterol Level 157 mg/dL (0-200) LDL Cholesterol, Calculated 110 mg/dL (0-100) VLDL Cholesterol, Calculated 12 mg/dL (0-40) Non-HDL Cholesterol Calculated 122 mg/dL (0-129) HDL Cholesterol 35 mg/dL (40-60) Cholesterol/HDL Ratio 4.5 Urine Opiates Screen Neg (NEG) Urine Methadone Screen Neg (NEG) Urine Barbiturates Neg (NEG) Urine Phencyclidine Screen Neg (NEG) Urine Amphetamine/Methamphetamine Neg (NEG) Urine Benzodiazepines Screen Neg (NEG) Urine Cocaine Screen Neg (NEG) Urine Cannabinoids Screen Pos (NEG) Urine Ethyl Alcohol Neg (NEG) Images Images Chest x-ray with cardiomegaly and pulmonary edema Assessment/Plan Assessment/Plan 1. Acute on chronic probable systolic heart failure. As outlined above patient's symptoms have become worse the last several days but he has been having symptoms of heart failure for at least 3-4 months. Agree with treatment with diuretics and starting of Vincent inhibitors. We'll continue to monitor. Echocardiogram tomorrow for evaluation of probable decreased LV systolic function. 2. History of hypertension. We'll continue present medications and monitor. 3. Episode of nonsustained V. tach. Continue treatment as above. Overnight treatment with amiodarone and continue monitoring. Thank you for allowing us to participate in the care of your patient. MARCELINA GORMAN MD Mar 18, 2019 16:12
[2019-03-19 03:45] VITALS: BP 157/101
[2019-03-19 05:44] LABS: BASO % 0 % (0-3); EOS # 0.1 x10^3/uL (0.0-0.7); EOS % 1 % (0-3); HEMATOCRIT 38.7 % (39.0-53.0); LYMPH # 2.4 x10^3/uL (1.0-4.8); LYMPH % 15 % (24-48); MEAN CORPUSCULAR HEMOGLOBIN 30 pg (25-35); MEAN CORPUSCULAR HGB CONC 33 g/dL (31-37); MEAN CORPUSCULAR VOLUME 88 fL (79-100); MONO % 6 % (0-9); NEUT % 78 % (31-73); PLATELET COUNT 206 x10^3/uL (140-400); RED BLOOD COUNT 4.38 x10^6/uL (4.30-5.70); RED CELL DISTRIBUTION WIDTH 14.7 % (11.5-14.5); WHITE BLOOD COUNT 16.6 x10^3/uL (4.0-11.0)
[2019-03-19 06:06] LABS: ALBUMIN 3.1 g/dL (3.4-5.0); ALBUMIN/GLOBULIN RATIO 0.8 (1.0-1.7); CREATININE 1.3 mg/dL (0.7-1.3); GFR 74.4; POTASSIUM 4.1 mmol/L (3.5-5.1); TOTAL BILIRUBIN 0.8 mg/dL (0.2-1.0); TOTAL PROTEIN 6.8 g/dL (6.4-8.2)
[2019-03-19 07:00] VITALS: BP 169/103
[2019-03-19] MEDS: LISINOPRIL 20 MG TABLET PO SCH (09:00)
[2019-03-19] MEDS: METOPROLOL TART IMMED RELEASE 25 MG TABLET. PO SCH ×3 (09:00→20:30)
[2019-03-19] MEDS: FAMOTIDINE 20 MG TABLET. PO SCH ×2 (09:00→20:29)
[2019-03-19] MEDS ORDERED: ALBUTEROL SULFATE 2.5 MG/3 ML NEBU. NEB PRN (10:15)
[2019-03-19] MEDS ORDERED: ALBUTEROL SULFATE 2.5 MG/3 ML NEBU. NEB ONE (10:15)
[2019-03-19] MEDS ORDERED: BUDESONIDE 0.5 MG/2 ML NEBU. NEB ONE (10:15)
--- NOTE | 2019-03-19 10:16 | PDOC ---
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, I would guess diastolic failure from longstanding poorly controlled htn angina nonsustained vtach History of Present Illness History of Present Illness amio gtt yesterday for vtach event, change to PO increase metoprolol, still htn, tachy he feels better treat asthma more aggressively cont tele monitor, echo tomorrow, CV team following Vitals Vitals Vital Signs Date Time Temp Pulse Resp B/P (MAP) Pulse Ox O2 Delivery O2 Flow Rate FiO2 03/19/19 09:00 84 169/103 03/19/19 07:00 98.2 18 96 Nasal Cannula 2.0 98.2 Physical Exam General: Alert, Oriented X3, Cooperative, No acute distress Heart: Regular rate Abdomen: Normal bowel sounds Extremities: No clubbing, Normal pulses, Other (tr edema) Skin: No rashes, No significant lesion Labs LABS Laboratory Tests Test 03/19/19 04:25 White Blood Count 16.6 x10^3/uL (4.0-11.0) Red Blood Count 4.38 x10^6/uL (4.30-5.70) Hemoglobin 13.0 g/dL (13.0-17.5) Hematocrit 38.7 % (39.0-53.0) Mean Corpuscular Volume 88 fL (79-100) Mean Corpuscular Hemoglobin 30 pg (25-35) Mean Corpuscular Hemoglobin Concent 33 g/dL (31-37) Red Cell Distribution Width 14.7 % (11.5-14.5) Platelet Count 206 x10^3/uL (140-400) Neutrophils (%) (Auto) 78 % (31-73) Lymphocytes (%) (Auto) 15 % (24-48) Monocytes (%) (Auto) 6 % (0-9) Eosinophils (%) (Auto) 1 % (0-3) Basophils (%) (Auto) 0 % (0-3) Neutrophils # (Auto) 13.0 x10^3/uL (1.8-7.7) Lymphocytes # (Auto) 2.4 x10^3/uL (1.0-4.8) Monocytes # (Auto) 1.0 x10^3/uL (0.0-1.1) Eosinophils # (Auto) 0.1 x10^3/uL (0.0-0.7) Basophils # (Auto) 0.0 x10^3/uL (0.0-0.2) Sodium Level 146 mmol/L (136-145) Potassium Level 4.1 mmol/L (3.5-5.1) Chloride Level 108 mmol/L (98-107) Carbon Dioxide Level 29 mmol/L (21-32) Anion Gap 9 (6-14) Blood Urea Nitrogen 17 mg/dL (8-26) Creatinine 1.3 mg/dL (0.7-1.3) Estimated GFR (Cockcroft-Gault) 74.4 BUN/Creatinine Ratio 13 (6-20) Glucose Level 116 mg/dL (70-99) Calcium Level 9.0 mg/dL (8.5-10.1) Magnesium Level 2.1 mg/dL (1.8-2.4) Total Bilirubin 0.8 mg/dL (0.2-1.0) Aspartate Amino Transf (AST/SGOT) 24 U/L (15-37) Alanine Aminotransferase (ALT/SGPT) 38 U/L (16-63) Alkaline Phosphatase 76 U/L (46-116) Total Protein 6.8 g/dL (6.4-8.2) Albumin 3.1 g/dL (3.4-5.0) Albumin/Globulin Ratio 0.8 (1.0-1.7) Review of Systems Review of Systems some cough, coarse breathing has PND, he feels better in medical bed Assessment and Plan Assessmemt and Plan Problems Medical Problems: (1) Acute exacerbation of congestive heart failure Status: Acute Comment Review of Relevant I have reviewed the following items vanessa (where applicable) has been applied. Labs Laboratory Tests Test 03/17/19 21:20 03/18/19 00:55 03/18/19 04:10 03/18/19 07:45 White Blood Count 17.1 x10^3/uL (4.0-11.0) 17.7 x10^3/uL (4.0-11.0) Red Blood Count 4.34 x10^6/uL (4.30-5.70) 4.27 x10^6/uL (4.30-5.70) Hemoglobin 12.9 g/dL (13.0-17.5) 12.8 g/dL (13.0-17.5) Hematocrit 38.3 % (39.0-53.0) 37.9 % (39.0-53.0) Mean Corpuscular Volume 88 fL (79-100) 89 fL (79-100) Mean Corpuscular Hemoglobin 30 pg (25-35) 30 pg (25-35) Mean Corpuscular Hemoglobin Concent 34 g/dL (31-37) 34 g/dL (31-37) Red Cell Distribution Width 14.4 % (11.5-14.5) 14.5 % (11.5-14.5) Platelet Count 200 x10^3/uL (140-400) 199 x10^3/uL (140-400) Neutrophils (%) (Auto) 78 % (31-73) 84 % (31-73) Lymphocytes (%) (Auto) 14 % (24-48) 10 % (24-48) Monocytes (%) (Auto) 7 % (0-9) 6 % (0-9) Eosinophils (%) (Auto) 1 % (0-3) 0 % (0-3) Basophils (%) (Auto) 1 % (0-3) 0 % (0-3) Neutrophils # (Auto) 13.3 x10^3/uL (1.8-7.7) 14.9 x10^3/uL (1.8-7.7) Lymphocytes # (Auto) 2.4 x10^3/uL (1.0-4.8) 1.7 x10^3/uL (1.0-4.8) Monocytes # (Auto) 1.2 x10^3/uL (0.0-1.1) 1.0 x10^3/uL (0.0-1.1) Eosinophils # (Auto) 0.2 x10^3/uL (0.0-0.7) 0.0 x10^3/uL (0.0-0.7) Basophils # (Auto) 0.1 x10^3/uL (0.0-0.2) 0.0 x10^3/uL (0.0-0.2) Segmented Neutrophils % 77 % (35-66) Lymphocytes % 16 % (24-48) Atypical Lymphocytes % (Manual) 1 % (0-0) Monocytes % 5 % (0-10) Eosinophils % 1 % (0-5) Platelet Estimate Adequate (ADEQUATE) Sodium Level 145 mmol/L (136-145) 142 mmol/L (136-145) Potassium Level 3.8 mmol/L (3.5-5.1) 3.6 mmol/L (3.5-5.1) Chloride Level 109 mmol/L (98-107) 108 mmol/L (98-107) Carbon Dioxide Level 25 mmol/L (21-32) 23 mmol/L (21-32) Anion Gap 11 (6-14) 11 (6-14) Blood Urea Nitrogen 13 mg/dL (8-26) 14 mg/dL (8-26) Creatinine 1.3 mg/dL (0.7-1.3) 1.3 mg/dL (0.7-1.3) Estimated GFR (Cockcroft-Gault) 61.5 74.4 BUN/Creatinine Ratio 10 (6-20) Glucose Level 128 mg/dL (70-99) 150 mg/dL (70-99) Lactic Acid Level 1.0 mmol/L (0.4-2.0) Calcium Level 9.0 mg/dL (8.5-10.1) 8.8 mg/dL (8.5-10.1) Total Bilirubin 0.9 mg/dL (0.2-1.0) Aspartate Amino Transf (AST/SGOT) 33 U/L (15-37) Alanine Aminotransferase (ALT/SGPT) 38 U/L (16-63) Alkaline Phosphatase 79 U/L (46-116) Troponin I Quantitative 0.445 ng/mL (0.000-0.055) 0.489 ng/mL (0.000-0.055) 0.400 ng/mL (0.000-0.055) YP-Ktw-A-Type Natriuretic Peptide 4686 pg/mL (0-124) Total Protein 6.9 g/dL (6.4-8.2) Albumin 3.2 g/dL (3.4-5.0) Albumin/Globulin Ratio 0.9 (1.0-1.7) Magnesium Level 2.0 mg/dL (1.8-2.4) Triglycerides Level 62 mg/dL (0-150) Cholesterol Level 157 mg/dL (0-200) LDL Cholesterol, Calculated 110 mg/dL (0-100) VLDL Cholesterol, Calculated 12 mg/dL (0-40) Non-HDL Cholesterol Calculated 122 mg/dL (0-129) HDL Cholesterol 35 mg/dL (40-60) Cholesterol/HDL Ratio 4.5 Urine Opiates Screen Neg (NEG) Urine Methadone Screen Neg (NEG) Urine Barbiturates Neg (NEG) Urine Phencyclidine Screen Neg (NEG) Urine Amphetamine/Methamphetamine Neg (NEG) Urine Benzodiazepines Screen Neg (NEG) Urine Cocaine Screen Neg (NEG) Urine Cannabinoids Screen Pos (NEG) Urine Ethyl Alcohol Neg (NEG) Test 03/19/19 04:25 White Blood Count 16.6 x10^3/uL (4.0-11.0) Red Blood Count 4.38 x10^6/uL (4.30-5.70) Hemoglobin 13.0 g/dL (13.0-17.5) Hematocrit 38.7 % (39.0-53.0) Mean Corpuscular Volume 88 fL (79-100) Mean Corpuscular Hemoglobin 30 pg (25-35) Mean Corpuscular Hemoglobin Concent 33 g/dL (31-37) Red Cell Distribution Width 14.7 % (11.5-14.5) Platelet Count 206 x10^3/uL (140-400) Neutrophils (%) (Auto) 78 % (31-73) Lymphocytes (%) (Auto) 15 % (24-48) Monocytes (%) (Auto) 6 % (0-9) Eosinophils (%) (Auto) 1 % (0-3) Basophils (%) (Auto) 0 % (0-3) Neutrophils # (Auto) 13.0 x10^3/uL (1.8-7.7) Lymphocytes # (Auto) 2.4 x10^3/uL (1.0-4.8) Monocytes # (Auto) 1.0 x10^3/uL (0.0-1.1) Eosinophils # (Auto) 0.1 x10^3/uL (0.0-0.7) Basophils # (Auto) 0.0 x10^3/uL (0.0-0.2) Sodium Level 146 mmol/L (136-145) Potassium Level 4.1 mmol/L (3.5-5.1) Chloride Level 108 mmol/L (98-107) Carbon Dioxide Level 29 mmol/L (21-32) Anion Gap 9 (6-14) Blood Urea Nitrogen 17 mg/dL (8-26) Creatinine 1.3 mg/dL (0.7-1.3) Estimated GFR (Cockcroft-Gault) 74.4 BUN/Creatinine Ratio 13 (6-20) Glucose Level 116 mg/dL (70-99) Calcium Level 9.0 mg/dL (8.5-10.1) Magnesium Level 2.1 mg/dL (1.8-2.4) Total Bilirubin 0.8 mg/dL (0.2-1.0) Aspartate Amino Transf (AST/SGOT) 24 U/L (15-37) Alanine Aminotransferase (ALT/SGPT) 38 U/L (16-63) Alkaline Phosphatase 76 U/L (46-116) Total Protein 6.8 g/dL (6.4-8.2) Albumin 3.1 g/dL (3.4-5.0) Albumin/Globulin Ratio 0.8 (1.0-1.7) Laboratory Tests Test 03/19/19 04:25 White Blood Count 16.6 x10^3/uL (4.0-11.0) Red Blood Count 4.38 x10^6/uL (4.30-5.70) Hemoglobin 13.0 g/dL (13.0-17.5) Hematocrit 38.7 % (39.0-53.0) Mean Corpuscular Volume 88 fL (79-100) Mean Corpuscular Hemoglobin 30 pg (25-35) Mean Corpuscular Hemoglobin Concent 33 g/dL (31-37) Red Cell Distribution Width 14.7 % (11.5-14.5) Platelet Count 206 x10^3/uL (140-400) Neutrophils (%) (Auto) 78 % (31-73) Lymphocytes (%) (Auto) 15 % (24-48) Monocytes (%) (Auto) 6 % (0-9) Eosinophils (%) (Auto) 1 % (0-3) Basophils (%) (Auto) 0 % (0-3) Neutrophils # (Auto) 13.0 x10^3/uL (1.8-7.7) Lymphocytes # (Auto) 2.4 x10^3/uL (1.0-4.8) Monocytes # (Auto) 1.0 x10^3/uL (0.0-1.1) Eosinophils # (Auto) 0.1 x10^3/uL (0.0-0.7) Basophils # (Auto) 0.0 x10^3/uL (0.0-0.2) Sodium Level 146 mmol/L (136-145) Potassium Level 4.1 mmol/L (3.5-5.1) Chloride Level 108 mmol/L (98-107) Carbon Dioxide Level 29 mmol/L (21-32) Anion Gap 9 (6-14) Blood Urea Nitrogen 17 mg/dL (8-26) Creatinine 1.3 mg/dL (0.7-1.3) Estimated GFR (Cockcroft-Gault) 74.4 BUN/Creatinine Ratio 13 (6-20) Glucose Level 116 mg/dL (70-99) Calcium Level 9.0 mg/dL (8.5-10.1) Magnesium Level 2.1 mg/dL (1.8-2.4) Total Bilirubin 0.8 mg/dL (0.2-1.0) Aspartate Amino Transf (AST/SGOT) 24 U/L (15-37) Alanine Aminotransferase (ALT/SGPT) 38 U/L (16-63) Alkaline Phosphatase 76 U/L (46-116) Total Protein 6.8 g/dL (6.4-8.2) Albumin 3.1 g/dL (3.4-5.0) Albumin/Globulin Ratio 0.8 (1.0-1.7) Microbiology 03/17/19 Blood Culture - Preliminary, Resulted NO GROWTH AFTER 1 DAY Medications Current Medications Ceftriaxone Sodium (Rocephin) 1 gm 1X ONCE IVP Last administered on 03/17/19at 22:11; Start 03/17/19 at 22:00; Stop 03/17/19 at 22:01; Status DC Doxycycline Hyclate (Vibra-Tab) 100 mg 1X ONCE PO Last administered on 03/17/19at 22:10; Start 03/17/19 at 22:00; Stop 03/17/19 at 22:01; Status DC Nitroglycerin (Nitro-Bid Oint) 1 inch 1X ONCE TP Last administered on 03/17/19at 22:11; Start 03/17/19 at 22:00; Stop 03/17/19 at 22:01; Status DC Aspirin (Children'S Aspirin) 324 mg 1X ONCE PO Last administered on 03/17/19at 22:11; Start 03/17/19 at 22:00; Stop 03/17/19 at 22:01; Status DC Furosemide (Lasix) 20 mg 1X ONCE IVP Last administered on 03/17/19at 22:10; Start 03/17/19 at 22:00; Stop 03/17/19 at 22:01; Status DC Nitroglycerin (Nitrostat) 0.4 mg PRN Q5MIN PRN SL CHEST PAIN Last administered on 03/18/19at 01:27; Start 03/17/19 at 22:00; Stop 03/18/19 at 21:59; Status DC Potassium Chloride (Klor-Con) 20 meq 1X ONCE PO Last administered on 03/17/19at 22:10; Start 03/17/19 at 22:00; Stop 03/17/19 at 22:01; Status DC Amlodipine Besylate (Norvasc) 5 mg 1X ONCE PO Last administered on 03/18/19at 00:07; Start 03/18/19 at 00:00; Stop 03/18/19 at 00:01; Status DC Amlodipine Besylate (Norvasc) 5 mg DAILY PO ; Start 03/18/19 at 09:00; Stop 03/18/19 at 06:13; Status DC Hydralazine HCl (Apresoline Inj) 10 mg PRN Q4HRS PRN IVP ELEVATED BP, SEE COMMENTS Last administered on 03/18/19at 09:40; Start 03/18/19 at 00:00 Metoprolol Tartrate (Lopressor) 25 mg 1X ONCE PO Last administered on 03/18/19at 01:27; Start 03/18/19 at 01:30; Stop 03/18/19 at 01:31; Status DC Metoprolol Tartrate (Lopressor) 25 mg BID PO Last administered on 03/19/19at 09:00; Start 03/18/19 at 09:00 Acetaminophen (Tylenol) 650 mg PRN Q6HRS PRN PO PAIN Last administered on 03/18/19at 18:09; Start 03/18/19 at 01:30 Albuterol Sulfate (Ventolin Neb Soln) 2.5 mg PRN Q4HRS PRN NEB SHORTNESS OF BREATH Last administered on 03/18/19at 01:34; Start 03/18/19 at 01:30 Furosemide (Lasix) 40 mg 1X ONCE IVP Last administered on 03/18/19at 07:16; Start 03/18/19 at 06:15; Stop 03/18/19 at 06:16; Status DC Amlodipine Besylate (Norvasc) 10 mg ONCE ONCE PO ; Start 03/18/19 at 06:15; Stop 03/18/19 at 06:38; Status DC Potassium Chloride (Klor-Con) 20 meq 1X ONCE PO Last administered on 03/18/19at 07:20; Start 03/18/19 at 06:45; Stop 03/18/19 at 06:46; Status DC Amiodarone HCl 150 mg/Dextrose 103 ml @ 618 mls/hr 1X ONCE IV Last administered on 03/18/19at 07:20; Start 03/18/19 at 07:00; Stop 03/18/19 at 07:09; Status DC Amiodarone HCl 450 mg/Dextrose 259 ml @ 17 mls/hr CONT PRN IV SEE I/O RECORD Last administered on 03/18/19at 07:30; Start 03/18/19 at 07:00 Famotidine (Pepcid) 20 mg BID PO Last administered on 03/19/19at 09:00; Start 03/18/19 at 09:00 Lisinopril (Prinivil) 20 mg DAILY PO Last administered on 03/19/19at 09:00; Start 03/18/19 at 10:00 Ondansetron HCl (Zofran) 4 mg PRN Q6HRS PRN IVP NAUSEA/VOMITING Last administered on 03/18/19at 10:43; Start 03/18/19 at 10:45 Active Scripts Active Reported Albuterol Sulfate Neb Soln (Albuterol Sulfate) 2.5 Mg/3 Ml Vial.neb 1 Vial NEB PRN Q4HRS Vitals/I & O Vital Sign - Last 24 Hours 03/18/19 03/18/19 03/18/19 03/18/19 10:34 11:00 15:00 19:40 Temp 97.6 98.4 98.5 97.6 98.4 98.5 Pulse 72 83 82 83 Resp 18 18 23 B/P (MAP) 144/89 144/80 (101) 142/85 (104) 170/91 (117) Pulse Ox 93 94 96 O2 Delivery Nasal Cannula Nasal Cannula Nasal Cannula O2 Flow Rate 2.0 2.0 2.0 03/18/19 03/18/19 03/18/19 03/19/19 19:45 21:53 23:56 03:45 Temp 98.4 98.1 98.4 98.1 Pulse 85 78 87 Resp 21 24 B/P (MAP) 144/95 140/93 (109) 157/101 (119) Pulse Ox 95 92 O2 Delivery Nasal Cannula Nasal Cannula Nasal Cannula O2 Flow Rate 2.0 2.0 2.0 03/19/19 03/19/19 03/19/19 07:00 09:00 09:00 Temp 98.2 98.2 Pulse 84 84 84 Resp 18 B/P (MAP) 169/103 (125) 169/103 169/103 Pulse Ox 96 O2 Delivery Nasal Cannula O2 Flow Rate 2.0 Intake and Output 03/18/19 03/18/19 03/19/19 15:00 23:00 07:00 Intake Total 500 ml 400 ml 160 ml Output Total 1200 ml 725 ml Balance -700 ml -325 ml 160 ml FRANCISCO CEDILLO MD Mar 19, 2019 10:16
[2019-03-19 11:00] VITALS: BP 154/96
--- NOTE | 2019-03-19 11:10 | EKG ---
[facility] [address] [place] [address] Test Date: 2019-03-17 Test Time: 20:52:54 Pat Name: KENDY LUNA Department: Room: Gender: M [employer] Se[employer]: : 1980 Requested By: LAURA MADDEN Order Number: [id number] Reading MD: Measurements Intervals [place] Rate: 83 P: 55 FL: 184 QRS: -18 QRSD: 106 T: 77 QT: 384 QTc: 457 Interpretive Statements SINUS RHYTHM LEFT ATRIAL ABNORMALITY LEFTWARD AXIS T ABNORMALITY IN HIGH LATERAL LEADS ABNORMAL ECG RI6.01 No previous ECG available for comparison
[2019-03-19] MEDS ORDERED: METOPROLOL TART IMMED RELEASE 25 MG TABLET. PO ONE (11:30)
[2019-03-19 15:00] VITALS: BP 141/103
--- NOTE | 2019-03-19 15:57 | PDOC ---
PROGRESS NOTES Subjective Subjective Patient seen and examined Objective Objective Vital Signs Date Time Temp Pulse Resp B/P (MAP) Pulse Ox O2 Delivery O2 Flow Rate FiO2 03/19/19 15:00 98.2 69 18 141/103 (116) 96 Nasal Cannula 2.0 98.2 Intake and Output 03/19/19 07:00 Intake Total 1060 ml Output Total 1925 ml Balance -865 ml Intake Oral 1060 ml Output Urine Total 1925 ml Physical Exam Abdomen: Normal bowel sounds Heart: Regular rate General: mild distress Lungs: Other (decreased breath sounds but improving) Assessment Assessment Problems Medical Problems: (1) Acute exacerbation of congestive heart failure Status: Acute 1. Acute on chronic probable systolic heart failure. As outlined above patient's symptoms have become worse the last several days but he has been having symptoms of heart failure for at least 3-4 months. Agree with treatment with diuretics and starting of Vincent inhibitors. The patient is feeling significantly better today. Continue present treatment. Echo today. Possible heart catheter tomorrow especially if the patient's ejection fraction is decreased. Risks and benefits were discussed with the patient. 2. History of hypertension. We'll continue present medications and monitor. 3. Episode of nonsustained V. tach. Stable overnight. Holding amiodarone. Continue treatment as above. Comment Review of Relevant I have reviewed the following items vanessa (where applicable) has been applied. Labs Laboratory Tests Test 03/17/19 21:20 03/18/19 00:55 03/18/19 04:10 03/18/19 07:45 White Blood Count 17.1 x10^3/uL (4.0-11.0) 17.7 x10^3/uL (4.0-11.0) Red Blood Count 4.34 x10^6/uL (4.30-5.70) 4.27 x10^6/uL (4.30-5.70) Hemoglobin 12.9 g/dL (13.0-17.5) 12.8 g/dL (13.0-17.5) Hematocrit 38.3 % (39.0-53.0) 37.9 % (39.0-53.0) Mean Corpuscular Volume 88 fL (79-100) 89 fL (79-100) Mean Corpuscular Hemoglobin 30 pg (25-35) 30 pg (25-35) Mean Corpuscular Hemoglobin Concent 34 g/dL (31-37) 34 g/dL (31-37) Red Cell Distribution Width 14.4 % (11.5-14.5) 14.5 % (11.5-14.5) Platelet Count 200 x10^3/uL (140-400) 199 x10^3/uL (140-400) Neutrophils (%) (Auto) 78 % (31-73) 84 % (31-73) Lymphocytes (%) (Auto) 14 % (24-48) 10 % (24-48) Monocytes (%) (Auto) 7 % (0-9) 6 % (0-9) Eosinophils (%) (Auto) 1 % (0-3) 0 % (0-3) Basophils (%) (Auto) 1 % (0-3) 0 % (0-3) Neutrophils # (Auto) 13.3 x10^3/uL (1.8-7.7) 14.9 x10^3/uL (1.8-7.7) Lymphocytes # (Auto) 2.4 x10^3/uL (1.0-4.8) 1.7 x10^3/uL (1.0-4.8) Monocytes # (Auto) 1.2 x10^3/uL (0.0-1.1) 1.0 x10^3/uL (0.0-1.1) Eosinophils # (Auto) 0.2 x10^3/uL (0.0-0.7) 0.0 x10^3/uL (0.0-0.7) Basophils # (Auto) 0.1 x10^3/uL (0.0-0.2) 0.0 x10^3/uL (0.0-0.2) Segmented Neutrophils % 77 % (35-66) Lymphocytes % 16 % (24-48) Atypical Lymphocytes % (Manual) 1 % (0-0) Monocytes % 5 % (0-10) Eosinophils % 1 % (0-5) Platelet Estimate Adequate (ADEQUATE) Sodium Level 145 mmol/L (136-145) 142 mmol/L (136-145) Potassium Level 3.8 mmol/L (3.5-5.1) 3.6 mmol/L (3.5-5.1) Chloride Level 109 mmol/L (98-107) 108 mmol/L (98-107) Carbon Dioxide Level 25 mmol/L (21-32) 23 mmol/L (21-32) Anion Gap 11 (6-14) 11 (6-14) Blood Urea Nitrogen 13 mg/dL (8-26) 14 mg/dL (8-26) Creatinine 1.3 mg/dL (0.7-1.3) 1.3 mg/dL (0.7-1.3) Estimated GFR (Cockcroft-Gault) 61.5 74.4 BUN/Creatinine Ratio 10 (6-20) Glucose Level 128 mg/dL (70-99) 150 mg/dL (70-99) Lactic Acid Level 1.0 mmol/L (0.4-2.0) Calcium Level 9.0 mg/dL (8.5-10.1) 8.8 mg/dL (8.5-10.1) Total Bilirubin 0.9 mg/dL (0.2-1.0) Aspartate Amino Transf (AST/SGOT) 33 U/L (15-37) Alanine Aminotransferase (ALT/SGPT) 38 U/L (16-63) Alkaline Phosphatase 79 U/L (46-116) Troponin I Quantitative 0.445 ng/mL (0.000-0.055) 0.489 ng/mL (0.000-0.055) 0.400 ng/mL (0.000-0.055) DD-Kva-Q-Type Natriuretic Peptide 4686 pg/mL (0-124) Total Protein 6.9 g/dL (6.4-8.2) Albumin 3.2 g/dL (3.4-5.0) Albumin/Globulin Ratio 0.9 (1.0-1.7) Magnesium Level 2.0 mg/dL (1.8-2.4) Triglycerides Level 62 mg/dL (0-150) Cholesterol Level 157 mg/dL (0-200) LDL Cholesterol, Calculated 110 mg/dL (0-100) VLDL Cholesterol, Calculated 12 mg/dL (0-40) Non-HDL Cholesterol Calculated 122 mg/dL (0-129) HDL Cholesterol 35 mg/dL (40-60) Cholesterol/HDL Ratio 4.5 Urine Opiates Screen Neg (NEG) Urine Methadone Screen Neg (NEG) Urine Barbiturates Neg (NEG) Urine Phencyclidine Screen Neg (NEG) Urine Amphetamine/Methamphetamine Neg (NEG) Urine Benzodiazepines Screen Neg (NEG) Urine Cocaine Screen Neg (NEG) Urine Cannabinoids Screen Pos (NEG) Urine Ethyl Alcohol Neg (NEG) Test 03/19/19 04:25 White Blood Count 16.6 x10^3/uL (4.0-11.0) Red Blood Count 4.38 x10^6/uL (4.30-5.70) Hemoglobin 13.0 g/dL (13.0-17.5) Hematocrit 38.7 % (39.0-53.0) Mean Corpuscular Volume 88 fL (79-100) Mean Corpuscular Hemoglobin 30 pg (25-35) Mean Corpuscular Hemoglobin Concent 33 g/dL (31-37) Red Cell Distribution Width 14.7 % (11.5-14.5) Platelet Count 206 x10^3/uL (140-400) Neutrophils (%) (Auto) 78 % (31-73) Lymphocytes (%) (Auto) 15 % (24-48) Monocytes (%) (Auto) 6 % (0-9) Eosinophils (%) (Auto) 1 % (0-3) Basophils (%) (Auto) 0 % (0-3) Neutrophils # (Auto) 13.0 x10^3/uL (1.8-7.7) Lymphocytes # (Auto) 2.4 x10^3/uL (1.0-4.8) Monocytes # (Auto) 1.0 x10^3/uL (0.0-1.1) Eosinophils # (Auto) 0.1 x10^3/uL (0.0-0.7) Basophils # (Auto) 0.0 x10^3/uL (0.0-0.2) Sodium Level 146 mmol/L (136-145) Potassium Level 4.1 mmol/L (3.5-5.1) Chloride Level 108 mmol/L (98-107) Carbon Dioxide Level 29 mmol/L (21-32) Anion Gap 9 (6-14) Blood Urea Nitrogen 17 mg/dL (8-26) Creatinine 1.3 mg/dL (0.7-1.3) Estimated GFR (Cockcroft-Gault) 74.4 BUN/Creatinine Ratio 13 (6-20) Glucose Level 116 mg/dL (70-99) Calcium Level 9.0 mg/dL (8.5-10.1) Magnesium Level 2.1 mg/dL (1.8-2.4) Total Bilirubin 0.8 mg/dL (0.2-1.0) Aspartate Amino Transf (AST/SGOT) 24 U/L (15-37) Alanine Aminotransferase (ALT/SGPT) 38 U/L (16-63) Alkaline Phosphatase 76 U/L (46-116) Total Protein 6.8 g/dL (6.4-8.2) Albumin 3.1 g/dL (3.4-5.0) Albumin/Globulin Ratio 0.8 (1.0-1.7) Laboratory Tests Test 03/19/19 04:25 White Blood Count 16.6 x10^3/uL (4.0-11.0) Red Blood Count 4.38 x10^6/uL (4.30-5.70) Hemoglobin 13.0 g/dL (13.0-17.5) Hematocrit 38.7 % (39.0-53.0) Mean Corpuscular Volume 88 fL (79-100) Mean Corpuscular Hemoglobin 30 pg (25-35) Mean Corpuscular Hemoglobin Concent 33 g/dL (31-37) Red Cell Distribution Width 14.7 % (11.5-14.5) Platelet Count 206 x10^3/uL (140-400) Neutrophils (%) (Auto) 78 % (31-73) Lymphocytes (%) (Auto) 15 % (24-48) Monocytes (%) (Auto) 6 % (0-9) Eosinophils (%) (Auto) 1 % (0-3) Basophils (%) (Auto) 0 % (0-3) Neutrophils # (Auto) 13.0 x10^3/uL (1.8-7.7) Lymphocytes # (Auto) 2.4 x10^3/uL (1.0-4.8) Monocytes # (Auto) 1.0 x10^3/uL (0.0-1.1) Eosinophils # (Auto) 0.1 x10^3/uL (0.0-0.7) Basophils # (Auto) 0.0 x10^3/uL (0.0-0.2) Sodium Level 146 mmol/L (136-145) Potassium Level 4.1 mmol/L (3.5-5.1) Chloride Level 108 mmol/L (98-107) Carbon Dioxide Level 29 mmol/L (21-32) Anion Gap 9 (6-14) Blood Urea Nitrogen 17 mg/dL (8-26) Creatinine 1.3 mg/dL (0.7-1.3) Estimated GFR (Cockcroft-Gault) 74.4 BUN/Creatinine Ratio 13 (6-20) Glucose Level 116 mg/dL (70-99) Calcium Level 9.0 mg/dL (8.5-10.1) Magnesium Level 2.1 mg/dL (1.8-2.4) Total Bilirubin 0.8 mg/dL (0.2-1.0) Aspartate Amino Transf (AST/SGOT) 24 U/L (15-37) Alanine Aminotransferase (ALT/SGPT) 38 U/L (16-63) Alkaline Phosphatase 76 U/L (46-116) Total Protein 6.8 g/dL (6.4-8.2) Albumin 3.1 g/dL (3.4-5.0) Albumin/Globulin Ratio 0.8 (1.0-1.7) Microbiology 03/17/19 Blood Culture - Preliminary, Resulted NO GROWTH AFTER 1 DAY Medications Current Medications Ceftriaxone Sodium (Rocephin) 1 gm 1X ONCE IVP Last administered on 03/17/19 22:11; Start 03/17/19 at 22:00; Stop 03/17/19 at 22:01; Status DC Doxycycline Hyclate (Vibra-Tab) 100 mg 1X ONCE PO Last administered on 03/17/19 22:10; Start 03/17/19 at 22:00; Stop 03/17/19 at 22:01; Status DC Nitroglycerin (Nitro-Bid Oint) 1 inch 1X ONCE TP Last administered on 03/17/19 22:11; Start 03/17/19 at 22:00; Stop 03/17/19 at 22:01; Status DC Aspirin (Children'S Aspirin) 324 mg 1X ONCE PO Last administered on 03/17/19at 22:11; Start 03/17/19 at 22:00; Stop 03/17/19 at 22:01; Status DC Furosemide (Lasix) 20 mg 1X ONCE IVP Last administered on 03/17/19at 22:10; Start 03/17/19 at 22:00; Stop 03/17/19 at 22:01; Status DC Nitroglycerin (Nitrostat) 0.4 mg PRN Q5MIN PRN SL CHEST PAIN Last administered on 03/18/19 01:27; Start 03/17/19 at 22:00; Stop 03/18/19 at 21:59; Status DC Potassium Chloride (Klor-Con) 20 meq 1X ONCE PO Last administered on 03/17/19at 22:10; Start 03/17/19 at 22:00; Stop 03/17/19 at 22:01; Status DC Amlodipine Besylate (Norvasc) 5 mg 1X ONCE PO Last administered on 03/18/19 00:07; Start 03/18/19 at 00:00; Stop 03/18/19 at 00:01; Status DC Amlodipine Besylate (Norvasc) 5 mg DAILY PO ; Start 03/18/19 at 09:00; Stop 03/18/19 at 06:13; Status DC Hydralazine HCl (Apresoline Inj) 10 mg PRN Q4HRS PRN IVP ELEVATED BP, SEE COMMENTS Last administered on 03/18/19 09:40; Start 03/18/19 at 00:00 Metoprolol Tartrate (Lopressor) 25 mg 1X ONCE PO Last administered on 03/18/19 01:27; Start 03/18/19 at 01:30; Stop 03/18/19 at 01:31; Status DC Metoprolol Tartrate (Lopressor) 25 mg BID PO Last administered on 03/19/19at 09:00; Start 03/18/19 at 09:00; Stop 03/19/19 at 10:08; Status DC Acetaminophen (Tylenol) 650 mg PRN Q6HRS PRN PO PAIN Last administered on 03/18/19 18:09; Start 03/18/19 at 01:30 Albuterol Sulfate (Ventolin Neb Soln) 2.5 mg PRN Q4HRS PRN NEB SHORTNESS OF BREATH Last administered on 03/18/19at 01:34; Start 03/18/19 at 01:30 Furosemide (Lasix) 40 mg 1X ONCE IVP Last administered on 10/5/19at 07:16; Start 03/18/19 at 06:15; Stop 03/18/19 at 06:16; Status DC Amlodipine Besylate (Norvasc) 10 mg ONCE ONCE PO ; Start 03/18/19 at 06:15; Stop 03/18/19 at 06:38; Status DC Potassium Chloride (Klor-Con) 20 meq 1X ONCE PO Last administered on 03/18/19at 07:20; Start 03/18/19 at 06:45; Stop 03/18/19 at 06:46; Status DC Amiodarone HCl 150 mg/Dextrose 103 ml @ 618 mls/hr 1X ONCE IV Last administered on 03/18/19at 07:20; Start 03/18/19 at 07:00; Stop 03/18/19 at 07:09; Status DC Amiodarone HCl 450 mg/Dextrose 259 ml @ 17 mls/hr CONT PRN IV SEE I/O RECORD Last administered on 03/18/19at 07:30; Start 03/18/19 at 07:00 Famotidine (Pepcid) 20 mg BID PO Last administered on 03/19/19at 09:00; Start 03/18/19 at 09:00 Lisinopril (Prinivil) 20 mg DAILY PO Last administered on 03/19/19at 09:00; Start 03/18/19 at 10:00 Ondansetron HCl (Zofran) 4 mg PRN Q6HRS PRN IVP NAUSEA/VOMITING Last administer ed on 03/18/19at 10:43; Start 03/18/19 at 10:45 Metoprolol Tartrate (Lopressor) 50 mg BID PO ; Start 03/19/19 at 10:15 Budesonide (Pulmicort) 0.5 mg 1X ONCE NEB Last administered on 03/19/19at 12:07; Start 03/19/19 at 10:15; Stop 03/19/19 at 10:20; Status DC Budesonide (Pulmicort) 0.5 mg RTBID NEB ; Start 03/19/19 at 20:00 Albuterol Sulfate (Ventolin Neb Soln) 2.5 mg 1X ONCE NEB Last administered on 03/19/19at 12:07; Start 03/19/19 at 10:15; Stop 03/19/19 at 10:20; Status DC Albuterol Sulfate (Ventolin Neb Soln) 2.5 mg BID NEB ; Start 03/19/19 at 21:00 Albuterol Sulfate (Ventolin Neb Soln) 2.5 mg PRN Q6HRS PRN NEB SHORTNESS OF B REATH; Start 03/19/19 at 10:15 Metoprolol Tartrate (Lopressor) 25 mg 1X ONCE PO Last administered on 03/19/19at 12:28; Start 03/19/19 at 11:30; Stop 03/19/19 at 11:33; Status DC Active Scripts Active Reported Albuterol Sulfate Neb Soln (Albuterol Sulfate) 2.5 Mg/3 Ml Vial.neb 1 Vial NEB PRN Q4HRS Vitals/I & O Vital Sign - Last 24 Hours 03/18/19 03/18/19 03/18/19 03/18/19 19:40 19:45 21:53 23:56 Temp 98.5 98.4 98.5 98.4 Pulse 83 85 78 Resp 23 21 B/P (MAP) 170/91 (117) 144/95 140/93 (109) Pulse Ox 96 95 O2 Delivery Nasal Cannula Nasal Cannula Nasal Cannula O2 Flow Rate 2.0 2.0 2.0 03/19/19 03/19/19 03/19/19 03/19/19 03:45 07:00 09:00 09:00 Temp 98.1 98.2 98.1 98.2 Pulse 87 84 84 84 Resp 24 18 B/P (MAP) 157/101 (119) 169/103 (125) 169/103 169/103 Pulse Ox 92 96 O2 Delivery Nasal Cannula Nasal Cannula O2 Flow Rate 2.0 2.0 03/19/19 03/19/19 03/19/19 03/19/19 10:15 11:00 12:11 12:28 Temp 98.4 98.4 Pulse 78 77 78 Resp 18 B/P (MAP) 154/96 154/96 (115) 154/96 Pulse Ox 94 97 O2 Delivery Nasal Cannula Nasal Cannula O2 Flow Rate 2.0 2.0 03/19/19 15:00 Temp 98.2 98.2 Pulse 69 Resp 18 B/P (MAP) 141/103 (116) Pulse Ox 96 O2 Delivery Nasal Cannula O2 Flow Rate 2.0 Intake and Output 03/18/19 03/18/19 03/19/19 15:00 23:00 07:00 Intake Total 500 ml 400 ml 160 ml Output Total 1200 ml 725 ml Balance -700 ml -325 ml 160 ml MARCELINA GORMAN MD Mar 19, 2019 15:57
--- NOTE | 2019-03-19 17:02 | CARD ---
MR#: [id number] Date of Study: 03/19/2019 Ordering Physician: FRANCISCO CEDILLO, Referring Physician: FRANCISCO CEDILLO Tech: Kavin Enriquez RDCS APPROVED REPORT EXAM: Two-dimensional and M-mode echocardiogram with Doppler and color Doppler. Other Information Quality : Average Rhythm : Tachycardia INDICATION Dyspnea RISK FACTORS Hypertension Obesity Hyperlipidemia Diabetes 2D DIMENSIONS Left Atrium(2D)5.0 (1.6-4.0cm)IVSd1.9 (0.7-1.1cm) Aortic Root(2D)4.1 (2.0-3.7cm)LVDd7.1 (3.9-5.9cm) LVOT Diameter2.7 (1.8-2.4cm)PWd1.4 (0.7-1.1cm) LVDs6.7 (2.5-4.0cm)FS (%) 5.6 % SV32.4 ml Aortic Valve AoV Peak Gary.119.6cm/sAoV VTI18.3cm AO Peak GR.5.7mmHgLVOT Peak Gary.100.9cm/s AO Mean GR.3mmHgAVA (VMAX)4.66cm2 Pulmonary Valve PV Peak Poustqbv94.0cm/s Tricuspid Valve TR P. Accnthzg728dn/sTR Peak Gr.41mmHg Pulmonary Vein S1 Buxukshy11.9cm/sD2 Yhjxzech65.0cm/s PVa [id number] LEFT VENTRICLE The Left Ventricle is mild to moderately dilated. There is mild concentric left ventricular hypertrop hy. The systolic function is severely impaired. Ejection fraction 20-25%. There is global hypokinesis of the left ventricle. RIGHT VENTRICLE The right ventricle is borderline dilated. There is normal right ventricular wall thickness. Systolic function is borderline reduced. ATRIA The left atrium is mildly dilated. The right atrium is mildly dilated. The interatrial septum is inta ct with no evidence for an atrial septal defect or patent foramen ovale as noted on 2-D or Doppler im aging. AORTIC VALVE The aortic valve is normal in structure and function. Doppler and Color Flow revealed no significant aortic regurgitation. There is no significant aortic valvular stenosis. MITRAL VALVE The mitral valve is normal in structure and function. There is no mitral valve stenosis. Doppler and Color-flow revealed mild to moderate mitral regurgitation. TRICUSPID VALVE The tricuspid valve is normal in structure and function. Doppler and Color Flow revealed mild tricusp id regurgitation. PULMONIC VALVE The pulmonary valve is normal in structure and function. Doppler and Color Flow revealed mild pulmoni c valvular regurgitation. GREAT VESSELS The aortic root is dialated The ascending aorta is dilated. IVC Doppler evaluation is dilated and unr esponsive PERICARDIAL EFFUSION There is no evidence of significant pericardial effusion. Critical Notification Critical Value: No <Conclusion> The Left Ventricle is mild to moderately dilated. The systolic function is severely impaired. Ejection fraction 20-25%. There is global hypokinesis of the left ventricle. There is mild concentric left ventricular hypertrophy. There is no significant aortic valvular stenosis. Doppler and Color Flow revealed no significant aortic regurgitation. Doppler and Color-flow revealed mild to moderate mitral regurgitation. Doppler and Color Flow revealed mild tricuspid regurgitation. Signed by : Tylre Jung MD Electronically Approved : 03/19/2019 17:02:53
[2019-03-19] MEDS: BUDESONIDE 0.5 MG/2 ML NEBU. NEB SCH (19:24)
[2019-03-19] MEDS: ALBUTEROL SULFATE 2.5 MG/3 ML NEBU. NEB SCH (19:24)
[2019-03-19 19:50] VITALS: BP 155/98
[2019-03-19 23:00] VITALS: BP 146/88
[2019-03-20] VITALS (13 sets, daily range): BP systolic 126–172; BP diastolic 78–119
[2019-03-20] MEDS ORDERED: IV NORMAL SALINE 1000ML BAG 1,000 ML IV SCH ×2 (08:00→09:57)
[2019-03-20] MEDS: BUDESONIDE 0.5 MG/2 ML NEBU. NEB SCH (08:00)
[2019-03-20] MEDS: ALBUTEROL SULFATE 2.5 MG/3 ML NEBU. NEB SCH (08:00)
[2019-03-20] MEDS ORDERED: IODIXANOL 320 MG/ML 100 ML VIAL. ONE (08:03)
[2019-03-20] MEDS ORDERED: LIDOCAINE 1% Multi-Dose 20 ML VIAL. ONE (08:03)
[2019-03-20] MEDS ORDERED: HEPARIN for ARTERIAL LINE 1,500 ML ONE (08:03)
[2019-03-20] MEDS: METOPROLOL TART IMMED RELEASE 25 MG TABLET. PO SCH (08:07)
[2019-03-20] MEDS: FAMOTIDINE 20 MG TABLET. PO SCH (08:08)
[2019-03-20] MEDS: LISINOPRIL 20 MG TABLET PO SCH (08:08)
[2019-03-20] MEDS ORDERED: fentaNYL PF VIAL 100 MCG/2 ML VIAL ONE (08:33)
[2019-03-20] MEDS ORDERED: MIDAZOLAM HCL/PF 2 MG/2 ML VIAL. ONE (08:33)
[2019-03-20] MEDS ORDERED: NITROGLYCERIN PREMIX 250 ML IV ONE ×2 (09:15→09:30)
[2019-03-20] MEDS ORDERED: fentaNYL PF VIAL 100 MCG/2 ML VIAL IV ONE (09:30)
[2019-03-20] MEDS ORDERED: MIDAZOLAM HCL/PF 2 MG/2 ML VIAL. IV ONE (09:30)
[2019-03-20] MEDS ORDERED: IODIXANOL 320 MG/ML 100 ML VIAL. IART ONE (09:30)
[2019-03-20] MEDS ORDERED: LIDOCAINE 1% Multi-Dose 20 ML VIAL. INJ ONE (09:30)
[2019-03-20] MEDS ORDERED: CONTRAST GIVEN. MC PRN (09:45)
[2019-03-20] MEDS ORDERED: NITROGLYCERIN SUBLINGUAL 0.4 MG BOTTLE OF 25. SL PRN (10:00)
[2019-03-20] MEDS ORDERED: 0.9 % SODIUM CHLORIDE 10 ML DISP.SYRIN. IV PRN (10:00)
[2019-03-20] MEDS ORDERED: METO50TA6 PO (11:45)
[2019-03-20] MEDS ORDERED: LISI-130 PO (11:45)
[2019-03-20] MEDS ORDERED: BUDE10.22 IH (11:45)
[2019-03-20] MEDS ORDERED: HYDR12.59 PO (12:37)
--- NOTE | 2019-03-20 12:47 | CARD ---
MR#: [id number] Date of Study: 03/20/2019 Ordering Physician: MARCELINA GORMAN, Referring Physician: Dieter HUBER: MADELEINE LARA RTR APPROVED REPORT Procedures Selective Coronary angiogram. The patient is a 38-year-old male who was admitted with new onset of heart failure. Patient was diure sed and clinically improved. Echocardiogram shows severely decreased ejection fraction on a global ba sis. In the setting heart catheterization was recommended to evaluate possible underlying coronary ar carroll disease as the etiology of the severe cardiomyopathy. Risks and benefits were discussed. The pat ient agreed to proceed. After informed consent was obtained the patient was brought to the heart catheterization lab. The are a of the right femoral artery was prepared the usual manner with Betadine, sterile draping and local anesthetic. An 18-gauge needle was used to enter the right femoral artery, a wire placed and a 6 Fren ch sheath placed over the wire. Using a J-wire a 6 Yi JL4 diagnostic catheter was advanced to the ascending aorta. It was used to engage the left system but proved to have optimal seating. It was th erefore replaced with a JL 5 diagnostic catheter. Sequential injections in various views were obtaine d. Again using a J-wire a 6 Yi Joseph diagnostic right catheter was advanced ascending aorta. I t was used to engage the right coronary artery and sequential injections in various views were obtain ed. Catheters removed from the patient. Injection the sheath showed normal placement. The sheath was removed and sealed with an Angio-Seal product. The patient had no immediate complications. Findings. Hemodynamics. Aortic root 152/104. Coronaries. Left main. The left main was a large vessel with no lesions. Left anterior descending. The LAD was a large vessel with normal distribution. It had minimal mid irr egularities of less than 10%. Left circumflex. The left circumflex was a moderate size vessel with normal distribution. It had no l esions. Right coronary artery. The right coronary was a large dominant vessel. It had minimal proximal diseas e of less than 10%. <Conclusion> No angiographic evidence of significant coronary disease with no lesions greater than 10%. Signed by : Marcelina Gorman MD Electronically Approved : 03/20/2019 12:46:47
--- NOTE | 2019-03-20 13:53 | NUR ---
SS following for discharge planning. SS reviewed pt chart. Pt is self pay pt. HCFS following for self pay status. Pt is from home. Discharge order on the chart for home with self care.
[2019-03-20] MEDS ORDERED: hydroCHLOROthiazide 12.5 MG CAPSULE PO SCH (14:00)
--- NOTE | 2019-03-20 20:19 | NUR ---
Discharge Note: KENDY LUNA Discharge instructions and discharge home medications reviewed with Patient and a copy given. All questions have been answered and understanding verbalized. The following instructions and handouts were given: medications, diet, follow up, hyper-hypotension, post cath instructions. Discontinued lines and drains: IV removed, no lines present. Patient discharged to left by wheelchair to family member vehicle. patient left without angio-seal card. tried to call but no answer and no message available. will mail to him.
== END 2019-03-20 16:25 | disposition home or self-care (01) | DRG 287 ==
LOC: ER 20:50 → 2 NORTH 22:22
PROVIDERS: ADMIT Internal Medicine; ATTEND Internal Medicine
PROC: B2111ZZ Fluoroscopy of Multiple Coronary Arteries using Low Osmolar Contrast (ICD-10-PCS; principal; 2019-03-20)
DX: I11.0 Hypertensive heart disease with heart failure (principal); I47.2 Ventricular tachycardia; Z68.41 Body mass index [BMI] 40.0-44.9, adult; I50.43 Acute on chronic combined systolic (congestive) and diastolic (congestive) heart failure; E66.9 Obesity, unspecified; I20.9 Angina pectoris, unspecified; J45.909 Unspecified asthma, uncomplicated; Z82.49 Family history of ischemic heart disease and other diseases of the circulatory system
CPT/HCPCS: 93454; 96374; 96375; 99285; G0269; 36415; 71045; 80048; 80053; 80061; 80307; 83605; 83735; 83880; 84484; 85007; 85025; 87040; 93005; 93306; 94640; 94760; 99152; 99153; C1760; C1769; C1892; J0282; J0360; J0696; J1644; J1940; J2250; J2405; J3010; J3490; J7030; J7613; J7626; Q9967; C1771; G0378